=== PATIENT | female | born 1995 | race Caucasian/White ===

== ENCOUNTER 2016-05-11 13:13 | Outpatient (CLI) | payer OTHER | END 2016-05-11 13:14 | disposition home or self-care (01) | DX: N63 Unspecified lump in breast (principal) ==

== ENCOUNTER 2016-05-27 09:03 | Outpatient (CLI) | payer OTHER ==
[2016-05-27] MEDS ORDERED: BUFFERED LIDOCAINE 10 ML SYRINGE IU ONE (10:47)
[2016-05-27] MEDS ORDERED: BUPIVACAINE 0.25% PF 30 ML VIAL SUBQ ONE (10:48)
== END 2016-05-27 09:04 | disposition home or self-care (01) ==
DX: D24.2 Benign neoplasm of left breast (principal)

== ENCOUNTER 2016-09-09 04:30 | Outpatient (CLI) | payer OTHER | END 2016-09-09 04:31 | disposition home or self-care (01) | LOC: LAB.R 04:30 | PROVIDERS: ATTEND Family Medicine | DX: R30.0 Dysuria (principal) | CPT/HCPCS: 87086 ==

== ENCOUNTER 2017-07-07 13:33 | Outpatient (CLI) | payer OTHER ==
--- NOTE | 2017-07-07 15:10 | Ultrasound Report ---
LEFT BREAST ULTRASOUND: 07/07/2017 INDICATION: Followup fibroadenoma. COMPARISON: 05/27/2016, 05/11/2016. TECHNIQUE: Real-time scanning was performed with client representative static images obtained. FINDINGS: Ultrasound of the left upper outer quadrant demonstrates a hypoechoic circumscribed nodule at the 11 o'clock position 4 cm from the nipple, with a central biopsy marker. It measures 1.2 x 1.2 x 0.7 cm, stable. No sonographically suspicious changes are identified. IMPRESSION: STABLE BIOPSY PROVEN FIBROADENOMA IN THE LEFT UPPER OUTER QUADRANT. RECOMMENDATIONS: Routine annual screening to commence at age 40, unless otherwise clinically indicated. BIRADS CATEGORY - 2 benign findings. TD: 07/07/2017 15:09
== END 2017-07-07 13:34 | disposition home or self-care (01) ==
LOC: DI 13:33
PROVIDERS: ATTEND Family Medicine
DX: D24.2 Benign neoplasm of left breast (principal)
CPT/HCPCS: 76642

== ENCOUNTER 2019-06-05 16:44 | Outpatient (CLI) | payer MEDICAID | END 2019-06-05 16:45 | disposition home or self-care (01) | LOC: COV 16:44 | PROVIDERS: ATTEND Family Medicine | DX: R05 Cough (principal); R50.9 Fever, unspecified | CPT/HCPCS: 81599 ==

== ENCOUNTER 2019-07-04 08:00 | Outpatient (CLI) | payer MEDICAID | END 2019-07-04 23:59 | disposition home or self-care (01) | LOC: LAB.R 08:00 | PROVIDERS: ATTEND Family Medicine | DX: R50.9 Fever, unspecified (principal) | CPT/HCPCS: 81599 ==

== ENCOUNTER 2020-09-11 08:00 | Outpatient (CLI) | payer MEDICAID | END 2020-09-11 23:59 | disposition home or self-care (01) | LOC: LAB.N 08:00 | PROVIDERS: ATTEND Physician Assistant Medical | DX: R30.0 Dysuria (principal) | CPT/HCPCS: 87086; 87181 ==

== ENCOUNTER 2021-05-04 13:06 | Outpatient (CLI) | payer MEDICAID ==
[2021-05-04] MEDS ORDERED: ALBUTEROL 1 PUFF INH STA (14:29)
== END 2021-05-04 13:07 | disposition home or self-care (01) ==
LOC: RT 13:06
PROVIDERS: ATTEND Internal Medicine
DX: J45.20 Mild intermittent asthma, uncomplicated (principal)
CPT/HCPCS: 94060; 94729